=== PATIENT | male | born 1970 | race Caucasian/White ===

== ENCOUNTER 2017-01-12 20:04 | Emergency (ER) | payer SELFPAY ==
[~2017-01-12] VITALS: Ht 188 cm; Wt 82.0 kg
--- NOTE | 2017-01-12 20:07 | ED.REPORT ---
HPI-Chest Pain 40 and Over Date of Service Jan 12, 2017 ED Provider: Perez Mcduffie DO Pt is a 46 y/o male with a history of IVDA who presents to the ED c/o left- sided chest pain onset this morning. Pt states he was walking 10 miles today to go to [place], when his chest pain started. He describes his chest pain as radiating down his arm that worsens upon inspiration. Additional symptoms include SOB, left-sided neck pain, headache, nausea, subjective fever, and diaphoresis. He denies abdominal pain, vomiting, or diarrhea. [place] was [place] on [address] [place] to head home to [place] where he reports he is currently homeless. EMS had some concern for heat stroke. He was given two nitro by EMS without relief in symptoms. Nursing Notes Stated Complaint: CHEST PAIN Chief Complaint: Chest Pain Nursing Notes Reviewed: Yes Allergies: Coded Allergies: phenobarbital (Verified Allergy, Intermediate, 01/12/17) General Time Seen by MD: 20:07 Chief Complaint Chest pain Hx Obtained From: Patient Arrived By: Ambulance Sudden in Onset?: Yes Onset Occurred: 1 - 4 hours ago Symptom Duration: Constant Quality: Painful Radiation: : Arm left Severity: Current: Mild Severity: Maximum: Moderate Pertinent Negative: Relieved by nothing Recent Healthcare: No recent doctor visit, No recent hospitalization Similar Sx Previous: No Past Medical History Past Medical History Reported bradycardia 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 Physical Exam Initial Vital Signs Vital Signs (First) Date Time Temp Pulse Resp B/P Pulse Ox O2 Delivery O2 Flow Rate FiO2 01/12/17 20:10 36.9 62 123/68 Room Air 01/12/17 20:30 18 99 Initial VS: Reviewed Head / Eyes: Atraumatic, Normocephalic Neck: Supple, Full range of motion Extremities: Vascular intact, Neuro intact, No swelling, No tenderness Neurologic: Alert, Oriented, Nonfocal General/Constitutional: Awake, Alert Respiratory / Chest: Atraumatic, Breath sounds NL, Breath sounds = bilat, No respiratory distress Cardiovascular: Heart rate NL, Regular rhythm, Heart sounds NL Abdomen: Soft, Non-tender Skin: Warm, Dry Flushed Clothes stained with sweat pablo Interpretation & Diagnostics Lab Results Interpretation Result Diagram: 01/12/17204901/12/172049 Test 01/12/17 20:50 01/12/17 22:45 01/13/17 02:32 White Blood Count 8.1th/mm3 (3.8-10.1) Red Blood Count 4.11mil/mm3 (4.40-5.80) Hemoglobin 12.3g/dL (13.8-17.2) Hematocrit 35.4% (41.0-50.0) Mean Corpuscular Volume 86.1fL (81-100) Mean Corpuscular Hemoglobin 29.9pg (27.0-35.0) Mean Corpuscular Hemoglobin Concent 34.7% (32.0-37.0) Red Cell Distribution Width 11.9% (12.3-15.4) Platelet Count 276bil/L (150-400) Neutrophils (%) (Auto) 57.2% (40-74) Lymphocytes (%) (Auto) 28.3% (14-46) Monocytes (%) (Auto) 13.2% (4-12) Eosinophils (%) (Auto) 0.5% (0-5) Basophils (%) (Auto) 0.6% (0-3) D-Dimer < 0.19mg/L FEU (<0.50) Sodium Level 134mEq/L (134-144) Potassium Level 3.8mEq/L (3.5-5.2) Chloride Level 98mEq/L (97-108) Carbon Dioxide Level 21mmol/L (18-29) Blood Urea Nitrogen 22mg/dL (6-24) Creatinine 0.94mg/dL (0.76-1.27) Estimat Glomerular Filtration Rate 93mL/min (>59) Glucose Level 89mg/dL (60-99) Calcium Level 8.6mg/dL (8.5-10.1) Magnesium Level 2.1mg/dL (1.6-2.6) Total Bilirubin 1.0mg/dL (0.0-1.2) Aspartate Amino Transf (AST/SGOT) 19U/L (0-50) Alanine Aminotransferase (ALT/SGPT) 14U/L (0-44) Alkaline Phosphatase 44U/L (25-150) Total Creatine Kinase 330U/L (21-232) Total Protein 6.7g/dL (6.4-8.4) Albumin 3.4g/dL (3.4-5.0) Hold Martin Top Tube Received (Received) Troponin T 0.010ug/L (0.0-0.011) Hold Urine Received (Received) ECG Interpretation ECG Interpretation: Sinus rhythm, rate 68 Mild nonspecific intraventricular conduction delay No ST abnormalities No previous for comparison Time: 20:14 Interpreted by: ED physician X-Ray Chest Interpretation Chest Xray Interpretation: IMPRESSION: No radiographic evidence of acute cardiopulmonary pathology. Dictated by: Kameron Romero M.D. on 01/12/2017 at 20:50 Approved by: Kameron Romero M.D. on 01/12/2017 at 20:50 View: AP & lat Interpretation / Wet Read by: Interpret - Radiologist Re-Eval/Medical Decision Med Decision/Clinical Course 46 yo homeless male found walking to [place] by EMS on a very warm day with some concern for head stroke. He was [place] on [address] which [place] eventually lead to end on his trip to [place] on foot. He was very flushed and had sweat pablo all over his clothes, not hyperthermic. Pt given 4 liters of fluids total but remained unable (or possibly unwilling) to urinate as it seemed he may have had some secondary gain being in the ER longer to sleep in a bed. Bladder scan revealed 630mls of urine and pt states that he could not void although he had not tried. He was notified that we needed to perform a catheterization to evaluate for obstruction and was then able to urinate without difficulty. UA showed opiate only and not other significant abn other than ketones. His main complaint was chest pain and EKG and serial troponins were negative. Low wells score and neg d dimer ruled out PE. CXR was normal in appearance. Chest pain was not improved by nitro but morphine and ativan helped. Pt was discharged after several hours of sleep here, although each time he was awakened from sleep he continued to complain of chest pain symptoms after a reassuringly negative workup here. Again I had some questions about secondary gain, but feel comfortable he had a thorough and complete negative workup here. Source of Hx: Old records Time of Eval: 22:14 Re-Evaluation/Progress Note: Patient rechecked. Vitals rechecked. Patient states he has pain and numbness in his jaw. Time of Eval: 00:42 Re-Evaluation/Progress Note: Patient rechecked. He states he still feels numbness. Plan to be discharged after urine sample. Time of Eval: 01:48 Re-Evaluation/Progress Note: Patient rechecked. States he can use the restroom now. Discussed plan for discharge. Patient understands and agrees with plan. F/U instructions and RTER warnings given. All questions addressed at this time. Counseled Regarding: Diagnosis, Lab results, Need for follow-up, When/why to return to ED Discharge & Departure Primary Impression: Chest pain Chest pain type: unspecified Qualified Code: R07.9 - Chest pain, unspecified Additional Impression: Heat stroke Encounter type: initial encounter Qualified Code: T67.0XXA - Heatstroke and sunstroke, initial encounter Ruled Out: Pulmonary embolus, Acute coronary syndrome, Pneumonia Disposition: Home Discharge Condition All VS Reviewed: Yes Condition: Stable Patient Instructions: Chest Pain (ED), Heatstroke (DC) Additional Instructions: Thank you for entrusting us with your medical care today. Your emergency department evaluation today including examination, lab work, EKG , and chest X-ray are reassuring. I believe that you were dehydrated, and we gave you 4 liters of fluids in the emergency department tonight. We were able to rule out heart problems, lung problems, and other dangerous causes for your symptoms Please call your primary care physician tomorrow in order to schedule a follow- up appointment for a recheck. Please return to the emergency department for any new or worsening conditions including any difficulty breathing, fevers, worsening chest pain, lightheadedness, or weakness. Referrals: Leigha Olea MD Scribe Attestation Portions of this note were transcribed by Martine Peraza. I, Dr. Juárez, personally performed the history, physical exam and medical decision-making; I reviewed and confirmed the accuracy of the information in the transcribed note. copies to: Leigha Olea MD, Gary R DO Jan 12, 2017 20:07 Martine Peraza Jan 12, 2017 20:27
[2017-01-12 20:10] VITALS: BP 123/68; PULSE 62
[2017-01-12] MEDS ORDERED: 0.9% Sodium Chloride 1,000 ML IV ONE ×3 (20:26→22:16)
[2017-01-12 20:30] VITALS: BP 120/66; PULSE 60; RESP 18; O2SAT 99
[2017-01-12] MEDS ORDERED: Ondansetron 2 mg/mL 2 mL Inj IVPUSH ONE (20:30)
[2017-01-12 20:45] VITALS: BP 112/61; PULSE 65; RESP 18; O2SAT 100
--- NOTE | 2017-01-12 20:52 | DRSVH ---
PROCEDURE: X-RAY CHEST, TWO VIEWS ([id number]) INDICATIONS: sob, chest pain TECHNIQUE: 2 views of the chest were acquired. COMPARISON: None. FINDINGS: Surgical changes and devices: None. Lungs and pleura: No pleural effusions or pneumothorax. Lungs are clear. Mediastinum: Mediastinal contours are normal. Heart size is normal. Bones and chest wall: No suspicious bony abnormalities. Soft tissues appear unremarkable. IMPRESSION: No radiographic evidence of acute cardiopulmonary pathology. Dictated by: Kameron Romero M.D. on 01/12/2017 at 20:50 Approved by: Kameron Romero M.D. on 01/12/2017 at 20:50
[2017-01-12 21:00] VITALS: BP 120/60; PULSE 60; RESP 18; O2SAT 100
[2017-01-12 21:03] LABS: BASOPHILS % (AUTO) 0.6 % (0-3); EOSINOPHILS % (AUTO) 0.5 % (0-5); MONOCYTES % (AUTO) 13.2 % (4-12); Mean Corpuscular Hemoglobin 29.9 pg (27.0-35.0); Mean Corpuscular Volume 86.1 fL (81-100); NEUTROPHILS % (AUTO) 57.2 % (40-74); Platelet Count 276 bil/L (150-400)
[2017-01-12 21:30] VITALS: BP 122/57; PULSE 56; RESP 18; O2SAT 100
[2017-01-12 21:34] LABS: TROPONIN T 0.01 ug/L (0.0-0.011)
[2017-01-12 21:46] LABS: Magnesium 2.1 mg/dL (1.6-2.6)
[2017-01-12] MEDS ORDERED: LORazepam 0.5 mg Tablet PO ONE (22:15)
[2017-01-13 00:18] VITALS: BP 113/56; PULSE 69; RESP 17; O2SAT 98
[2017-01-13] MEDS ORDERED: 0.9% Sodium Chloride 1,000 ML IV ONE (00:45)
[2017-01-13 02:38] VITALS: BP 113/56; PULSE 69; RESP 17; O2SAT 98
== END 2017-01-13 02:38 | disposition home or self-care (01) ==
LOC: SED 20:04
DX: R07.9 Chest pain, unspecified (principal); T67.0XXA Heatstroke and sunstroke, initial encounter; X30.XXXA Exposure to excessive natural heat, initial encounter; Y93.01 Activity, walking, marching and hiking; Y92.89 Other specified places as the place of occurrence of the external cause; Y99.8 Other external cause status; Z88.8 Allergy status to other drugs, medicaments and biological substances
CPT/HCPCS: 36415; 51798; 71020; 80053; 81002; 82550; 83735; 84484; 85025; 85378; 96361; 96374; 96375; 99285; J2270; J2405; J7030